=== PATIENT | female | born 1965 | race Caucasian/White ===

== ENCOUNTER 2019-08-19 17:59 | Outpatient (CLI) | payer OTHER, SELFPAY ==
--- NOTE | ~2019-08-19 | CT_ITS ---
EXAMINATION: CT abdomen pelvis w con DATE: 08/19/2019 18:42 INDICATION: Pelvic and perineal pain TECHNIQUE: Computed tomography (CT) of the abdomen and pelvis was performed with 100 cc Omnipaque 350 intravenous contrast. The dose-length product was 417.73 mGy-cm. Automated exposure control and iter ative reconstruction technique were employed. COMPARISON: None. FINDINGS: Heart size hiatal hernia. Heart size normal. No significant pleural or pericardial effusion . Status post cholecystectomy with expected prominence of the bile ducts.. No significant vascular ab normality. Mildly prominent retroperitoneal lymph nodes, likely reactive. The spleen, pancreas, adrenal glands and right kidney are unremarkable. Small subcentimeter hypodense lesion left kidney, most likely benign cysts. Nonobstructive bowel gas pattern. Multiple appendix. N o abnormal pelvic masses or fluid collections. No free air or free fluid. Mild levoscoliosis of the l umbar spine. No acute osseous abnormality. IMPRESSION: 1. No acute abdominal abnormality. 2: Moderate size hiatal hernia. Reviewed, dictated and finalized at location A.
[2019-08-19 18:36] LABS: Estimated Glomerular Filt Rate > 60
== END 2019-08-19 18:00 | disposition home or self-care (01) ==
PROVIDERS: PCP Family Medicine; Visit Provider Physician Assistant
DX: R10.2 Pelvic and perineal pain (principal); K44.9 Diaphragmatic hernia without obstruction or gangrene
CPT/HCPCS: 36415; 74177; Q9967

== ENCOUNTER → 2020-07-08 11:25 | Outpatient (CLI) | payer OTHER, SELFPAY ==
--- NOTE | ~2020-07-08 | MM_ITS ---
EXAMINATION: MM screening [facility] BI w rubio HISTORY: Screening mammogram TECHNIQUE: Craniocaudal and mediolateral oblique 3-D tomosynthesis images were obtained and synthetic 2-D images were generated. CAD analysis was submitted and interpreted. COMPARISON: 04/21/2018, 12/07/2016, 07/12/2012 bilateral digital screening mammogram examinations BREAST PARENCHYMAL COMPOSITION: There are scattered areas of fibroglandular density. FINDINGS: There is focal architectural distortion in the posterior central left breast (craniocaudal tomosynthesis image 41/76). Diagnostic left mammogram and left breast ultrasound are recommended. Otherwise there is no evidence of suspicious mass, calcification, or architectural distortion to sug gest malignancy in either breast. There has been no other suspicious interval change. IMPRESSION: 1. No mammographic evidence of malignancy. 2. Recommend routine screening mammography in one year. BI-RADS Category 0: Incomplete: Needs additional imaging evaluation. Reviewed, dictated and finalized at location A.
== END ==
PROVIDERS: PCP Family Medicine; Visit Provider Physician Assistant
DX: Z12.31 Encounter for screening mammogram for malignant neoplasm of breast (principal); R92.8 Other abnormal and inconclusive findings on diagnostic imaging of breast
CPT/HCPCS: 77063; 77067

== ENCOUNTER → 2020-10-14 08:11 | Outpatient (CLI) | payer OTHER, SELFPAY ==
--- NOTE | ~2020-10-14 | MMUS_ITS ---
EXAMINATION: MM diagnostic [facility] LT w rubio, US breast LT complete HISTORY: Follow-up left breast asymmetry TECHNIQUE: Additional 3-D tomosynthesis images of the left breast were performed and synthetic 2-D im ages were generated. CAD analysis was submitted and interpreted. High resolution complete left breast ultrasound was performed. COMPARISON: Comparison to multiple prior studies sequentially, with oldest reviewed study dated 12/15. BREAST PARENCHYMAL COMPOSITION: The breasts are heterogenously dense, which may obscure small masses. FINDINGS: MAMMOGRAPHIC FINDINGS: There are no suspicious masses, calcifications or architectural distortion in the left breast to sugg est malignancy. ULTRASOUND: Complete left breast ultrasound: Normal heterogeneous echotexture without focal solid or cystic mass. IMPRESSION: 1. No evidence for malignancy in the left breast. 2. Routine yearly screening mammogram and regular clinical breast examination are recommended. BI-RADS Category 1: Negative Reviewed, dictated and finalized at location A. IMPRESSION: 1. No evidence for malignancy in the left breast. 2. Routine yearly screening mammogram and regular clinical breast examination a re recommended. BI-RADS Category 1: Negative
== END ==
PROVIDERS: PCP Family Medicine; Visit Provider Physician Assistant
DX: R92.8 Other abnormal and inconclusive findings on diagnostic imaging of breast (principal)
CPT/HCPCS: 76641; 77061; 77065; G0279

== ENCOUNTER → 2021-08-30 09:41 | Outpatient (CLI) | payer OTHER, SELFPAY ==
[2021-08-30 11:25] LABS: SARS-CoV-2 RNA PCR Negative
== END ==
PROVIDERS: PCP Family Medicine; Visit Provider Physician Assistant
DX: R51.9 Headache, unspecified (principal); Z20.822 Contact with and (suspected) exposure to COVID-19
CPT/HCPCS: C9803; U0003; U0005

== ENCOUNTER → 2021-09-03 09:41 | Outpatient (CLI) | payer OTHER, SELFPAY ==
[2021-09-03 14:40] LABS: SARS-CoV-2 RNA PCR Positive
== END ==
PROVIDERS: PCP Family Medicine; Visit Provider Physician Assistant
DX: U07.1 COVID-19 (principal)
CPT/HCPCS: C9803; U0003; U0005

== ENCOUNTER → 2021-09-11 07:56 | Outpatient (CLI) | payer OTHER, SELFPAY ==
--- NOTE | ~2021-09-11 | MM_ITS ---
EXAMINATION: MM screening [facility] BI w rubio HISTORY: Screening TECHNIQUE: Craniocaudal and mediolateral oblique 3-D tomosynthesis images were obtained and synthetic 2-D images were generated. CAD analysis was submitted and interpreted. COMPARISON: Comparison to multiple prior studies sequentially, with oldest reviewed study dated 07/12. BREAST PARENCHYMAL COMPOSITION: Breast composed of scattered areas of fibroglandular density FINDINGS: There is no evidence of suspicious mass, calcification, or architectural distortion to sugg est malignancy in either breast. There has been no suspicious interval change. IMPRESSION: 1. No mammographic evidence of malignancy. 2. Recommend routine screening mammography in one year. BI-RADS Category 1: Negative Reviewed, dictated and finalized at location A.
== END ==
PROVIDERS: PCP Physician Assistant; Visit Provider Physician Assistant
DX: Z12.31 Encounter for screening mammogram for malignant neoplasm of breast (principal)
CPT/HCPCS: 77063; 77067